=== PATIENT | female | born 1965 | race Caucasian/White ===

== ENCOUNTER → 2018-03-10 15:50 | Outpatient (CLI) | payer BC, SELFPAY ==
--- NOTE | 2018-03-10 15:57 | DI.RAD.S_ITS ---
PROCEDURE: XR HAND LT MIN 3V INDICATIONS: LEFT HAND FINGER PAIN TECHNIQUE: 3 views of the hand(s) acquired. COMPARISON: None. FINDINGS: Bones: No fractures or dislocations. Carpal bones are normally aligned. No suspicious bony lesions. No joint space narrowing, para-articular osteopenia or osteophyte formation. Soft tissues: No suspicious soft tissue calcifications. IMPRESSION: Normal exam. Dictated by: Sheng Crowley M.D. on 03/10/2018 at 17:12 Approved by: Sheng Crowley M.D. on 03/10/2018 at 17:13
== END ==
PROVIDERS: Visit Provider Physician Assistant
DX: M79.645 Pain in left finger(s) (principal)
CPT/HCPCS: 73130